=== PATIENT | female | born 1995 | race Caucasian/White ===

== ENCOUNTER 2024-08-25 22:06 | Emergency (ER) | payer OTHER, SELFPAY ==
--- NOTE | 2024-08-25 22:41 | DI.US.S_ITS ---
PROCEDURE: US OB <= 14 WEEKS FETUS INDICATIONS: 7 weeks with vag bleeding OUTSIDE/PRIOR DATING DATA: Last menstrual period (LMP): 07/05/2024. LMP-based estimated date of delivery (GOGO): 04/11/2025. First dating scan (date and location): 08/25/2024. Estimated date of delivery (GOGO) from first dating scan: 04/07/2025. TECHNIQUE: Real-time scanning was performed of the fetus and maternal pelvic organs, with image documentation. Endovaginal scanning was also performed to better visualize the fetus and maternal ovaries. COMPARISON: None. FINDINGS: Embryo: [place]-rump length measures 1.5 cm corresponding to 7 weeks 6 days perigestational hemorrhage is present measuring 1.3 cm. Heart rate: 165 Maternal organs: Ovaries probable left corpus luteal cyst.. IMPRESSION: Single live intrauterine with gestational age today 7 weeks 6 days. Perigestational hemorrhage. Recommend followup imaging at 20-22 weeks for dates and anatomy. We strive to produce accurate, complete, and clear reports of imaging services. To assist us in improving patient care, this report was composed using standard report templates and voice recognition software. Therefore, it may contain abnormal punctuation, insertions and/or omissions. Occasional wrong-word or sound-alike substitutions may occur. Though we review the report and make efforts to correct it, we do recommend that the report be read carefully in proper context to recognize any text inaccuracies. Dictated by: Jaz Devries M.D. on 08/26/2024 at 0:04 Approved by: Jaz Devries M.D. on 08/26/2024 at 0:05
[2024-08-25 22:43] VITALS: BP 120/73; PULSE 78; RESP 16; TEMP 37; O2SAT 100; BMI 21.6
[2024-08-26 00:18] LABS: Add Manual Diff / Slide Review NO; Basophils Absolute Auto 0 /uL (0-100); Basophils Percent Auto 0.7 % (0-2); Eosinophils Absolute Auto 200 /uL (0-450); Eosinophils Percent Auto 2.5 % (2-4); Hematocrit 35.3 % (36-46); Hemoglobin 11.7 g/dL (12.0-16.0); Lymphocytes Absolute Auto 1800 /uL (1100-4500); Lymphocytes Percent Auto 25.3 % (25-40); Mean Corpuscular HGB Conc 33.2 % (30-36); Mean Corpuscular Hemoglobin 28.2 PG (26-34); Monocytes Absolute Auto 500 /uL (0-900); Monocytes Percent Auto 6.9 % (3-14); Neutrophils Absolute Auto 4500 /uL (1500-7000); Neutrophils Percent Auto 64.6 % (50-75); Platelet Count 270 X10^3/uL (150-400); Red Blood Cell Count 4.15 X10^6/uL (4.0-5.2); Red Cell Distribution Width 14.9 % (11.6-14.8); White Blood Cell Count 6.9 X10^3/uL (4.5-11.0)
[2024-08-26 00:28] LABS: Blood Urea Nitrogen 8 mg/dL (7-17); Calcium 9.4 mg/dL (8.4-10.2); Carbon Dioxide 21 mmol/L (22-32); Chloride 104 mmol/L (98-107); Estimated Glomerular Filt Rate > 60 mL/min (>60); Glucose 93 mg/dL (70-100); HEMOLYSIS < 15 (0-50); Potassium 3.3 mmol/L (3.4-5.1); Sodium 133 mmol/L (137-145)
[2024-08-26 00:48] LABS: Appearance Urine UA CLEAR; Bilirubin Urine UA NEGATIVE (NEGATIVE); Color Urine UA YELLOW; Glucose Urine UA NEGATIVE (Negative); Ketones Urine UA NEGATIVE (NEGATIVE); Leukocyte Esterase Urine UA NEGATIVE (NEGATIVE); Nitrite Urine UA NEGATIVE (Negative); Occult Blood Urine UA 3+ (Negative); Protein Urine UA NEGATIVE (Negative); Specific Gravity Urine UA 1.025 (1.000-1.035)
[2024-08-26 00:53] LABS: Bacteria Urine Moderate (10-30); Culture Indicated Urine Cult Not Indicated; Mucus Urine 2+ (Negative); RBC Urine 0-1/HPF (0-5/HPF); Squamous Epithelial Cell Urine 5-10 /HPF (0-5/HPF); Urine Volume Low Vol <10mL (spun); WBC Urine 0-1/HPF (0-5/HPF)
[2024-08-26 01:10] LABS: HCG Quantitative /Beta subunit 147780 mIU/mL
--- NOTE | 2024-08-26 01:20 | ED_ITS ---
HPI - Female Genitourinary General Chief complaint: OB/Uterine Contractions Stated complaint: 7 weeks preg, cramping and bleeding Time Seen by Provider: 08/25/24 22:41 Source: patient Mode of arrival: Ambulatory History of Present Illness HPI Narrative: 28-year-old female without any significant past medical history comes into the ED from home for evaluation of vaginal bleeding. She states that she is currently approximately 7 weeks , this was an unplanned , [facility]. She presents due to the fact that she had some vaginal spotting bleeding mild cramping. She states that she does not have an OBGYN but does not intend to keep this . Patient denies any other symptoms at this time no trauma no falls. Related Data Previous Rx's Medication Instructions Recorded cephalexin 500 mg capsule 500 mg PO TID 7 days #21 caps 08/26/24 Review of Systems Review of Systems Narrative: General: Denies fever, chills, weight loss HEENT: Denies headache, eye drainage, eye irritation, head trauma, sore throat, voice change Cardiovascular: Denies any chest pain, palpitations, tachycardia Respiratory: Denies any shortness of breath, cough, wheeze, stridor GI/: Positive pelvic cramping and vaginal bleeding, patient is a proximally 7 weeks Denies any abdominal pain, nausea, vomiting, diarrhea, bright red blood per rectum, melanotic stools, urinary frequency, urinary retention, dysuria, hematuria MSK: Denies any joint pain, muscle pains, swelling Skin: Denies any rashes, lesions, discoloration Neuro: Denies any headache, lightheadedness, dizziness, fainting, weakness Psych: Denies SI/HI Exam Narrative Exam Narrative: General: Cooperative, well-developed, not in acute distress HEENT: Normocephalic, atraumatic, PERRLA, normal sclera, eyelids normal Neck: Active full range of motion, atraumatic Chest: Normal to inspection, negative crepitus, no overlying erythema ecchymosis Respiratory: Normal respiratory effort, not in acute respiratory distress, clear to auscultation bilaterally negative cough, wheeze, tachypnea, rhonchi, rales Cardiology: Regular rate rhythm negative gallop, murmur, rubs GI/: No tenderness to palpation, soft, non rigid, normal to inspection, exam deferred MSK: Full active range of motion in all 4 extremities, atraumatic, no tenderness to palpation of any bony prominences Skin: No rashes or lesions noted Neuro: Alert awake oriented x3, moves all 4 extremities spontaneously, cranial nerves intact, able to answer all questions appropriately follows commands appropriately Psych: Cooperative, negative suicidal or homicidal ideations Initial Vital Signs Initial Vital Signs: Vital Signs Temperature 98.6 F 08/25/24 22:43 Pulse Rate 78 08/25/24 22:43 Respiratory Rate 16 08/25/24 22:43 Blood Pressure 120/73 08/25/24 22:43 Pulse Oximetry 100 08/25/24 22:43 Oxygen Delivery Method Room Air 08/25/24 22:43 Course Orders Ordered: ED Orders 08/25/24 22:41 OB <= 14 weeks fetus Stat ABO RH Type Stat HCG Quantitative /Beta subunit Stat 08/25/24 22:42 BMP [Basic Metabolic Panel] Stat CBC Auto Diff [Complete Blood Count AUTO DIFF] Stat 08/26/24 00:27 Urinalysis and Microscopic Stat Vital Signs Vital signs: Vital Signs - 8 hr 08/25/24 22:43 Temperature 98.6 F Pulse Rate 78 Respiratory Rate 16 Blood Pressure 120/73 Pulse Oximetry 100 Oxygen Delivery Method Room Air MDM - Female Genitourinary Differential Diagnosis Differential diagnosis: Likely urinary tract infection and other (Asymptomatic bacteriuria, threatened ) Lab Data 08/26/24 00:04 08/26/24 00:04 Labs: Lab Results 08/26/24 08/26/24 Range/Units 00:04 00:27 WBC 6.9 (4.5-11.0) X10^3/uL RBC 4.15 (4.0-5.2) X10^6/uL Hgb 11.7 L (12.0-16.0) g/dL Hct 35.3 L (36-46) % MCV 85.0 (80-100) fL MCH 28.2 (26-34) PG MCHC 33.2 (30-36) % RDW 14.9 H (11.6-14.8) % Plt Count 270 (150-400) X10^3/uL Neut % (Auto) 64.6 (50-75) % Lymph % (Auto) 25.3 (25-40) % [place] % (Auto) 6.9 (3-14) % Eos % (Auto) 2.5 (2-4) % Baso % (Auto) 0.7 (0-2) % Neut # (Auto) 4500 (5671-4190) /uL Lymph # (Auto) 1800 (7203-6778) /uL [place] # (Auto) 500 (0-900) /uL Eos # (Auto) 200 (0-450) /uL Baso # (Auto) 0 (0-100) /uL Sodium 133 L (137-145) mmol/L Potassium 3.3 L (3.4-5.1) mmol/L Chloride 104 (98-107) mmol/L Carbon Dioxide 21 L (22-32) mmol/L BUN 8 (7-17) mg/dL Creatinine 0.73 (0.52-1.04) mg/dL Estimated GFR > 60 (>60) mL/min BUN/Creatinine Ratio 11.0 (6-22) Glucose 93 (70-100) mg/dL Calcium 9.4 (8.4-10.2) mg/dL HCG, Quant 668775 mIU/mL Urine Color Yellow Urine Appearance Clear Urine pH 6.0 (4.5-8.0) Ur Specific [place] 1.025 (1.000-1.035) Urine Protein Negative (Negative) Urine Glucose (UA) Negative (Negative) g/dL Urine Ketones Negative (NEGATIVE) Urine Occult Blood 3+ H (Negative) Urine Nitrate Negative (Negative) Urine Bilirubin Negative (NEGATIVE) Urine Urobilinogen 1.0 (0.2) E.U./dL Ur Leukocyte Esterase Negative (NEGATIVE) Urine RBC 0-1/hpf (0-5/HPF) Urine WBC 0-1/hpf (0-5/HPF) Ur Squamous Epith Cells 5-10 /hpf H (0-5/HPF) Urine Bacteria Moderate (10-30) H (None) Urine Mucus 2+ H (Negative) Ur Culture Indicated? Cult not indicated Vol Urine Centrifuged Low vol <10ml (spun) A Blood Type A Positive Imaging Data US - OB: Radiologist's Impression: [address] [address] Ultrasound Report Signed Patient: Danitza Rayo MR#: [id number] : 1995 Acct:[id number] Age/Sex: 28 / F Date of Service: 08/25/24 Loc: ED Accession Number: [id number] Procedure: US OB <= 14 weeks fetus Ordering Provider: Mitchell Hendrickson D.O. PROCEDURE: US OB <= 14 WEEKS FETUS INDICATIONS: 7 weeks with vag bleeding OUTSIDE/PRIOR DATING DATA: Last menstrual period (LMP): 07/05/2024. LMP-based estimated date of delivery (GOGO): 04/11/2025. First dating scan (date and location): 08/25/2024. Estimated date of delivery (GOGO) from first dating scan: 04/07/2025. TECHNIQUE: Real-time scanning was performed of the fetus and maternal pelvic organs, with image documentation. Endovaginal scanning was also performed to better visualize the fetus and maternal ovaries. COMPARISON: None. FINDINGS: Embryo: [place]-rump length measures 1.5 cm corresponding to 7 weeks 6 days perigestational hemorrhage is present measuring 1.3 cm. Heart rate: 165 Maternal organs: Ovaries probable left corpus luteal cyst.. IMPRESSION: Single live intrauterine with gestational age today 7 weeks 6 days. Perigestational hemorrhage. Recommend followup imaging at 20-22 weeks for dates and anatomy. We strive to produce accurate, complete, and clear reports of imaging services. To assist us in improving patient care, this report was composed using standard report templates and voice recognition software. Therefore, it may contain abnormal punctuation, insertions and/or omissions. Occasional wrong-word or sound-alike substitutions may occur. Though we review the report and make efforts to correct it, we do recommend that the report be read carefully in proper context to recognize any text inaccuracies. MDM Narrative Medical decision making narrative: 28-year-old female currently 7 weeks unplanned presents to the emergency department for vaginal cramping bleeding, believes she might be having an /miscarriage. No trauma no falls not on any blood thinners. She does not have an OBGYN states that she [facility] She does not intend to keep this . She denies any other symptoms at this time. Ultrasound showing a single live intrauterine with perigestational hemorrhage otherwise no other acute findings on ultrasound, patient patient is A positive therefore does not require RhoGAM at this time. Patient will be treated for an acute urinary tract infection/asymptomatic bacteriuria, 1st dose of antibiotics here sent home with a prescription she was instructed [facility] along with her primary care doctor, she verbalized understanding of this and agrees to being discharged home with outpatient follow up Discharge Plan Departure Patient Disposition: Home Clinical Impression: , threatened, Urinary tract infection Instructions: DI for Urinary Tract Infection (UTI) Activity Restrictions/Additional Instructions: [facility] and your primary care in outpatient setting Please read the discharge instructions sheet carefully and bring all papers to all doctor follow-up visits, as it may contain information that your doctor may want to see. Disease processes change and evolve, if your symptoms worsen or if you develop any new symptoms that are concerning to you please return for evaluation. Your evaluation today does not show any evidence of any life- threatening/serious illnesses requiring admission to the hospital or surgery. Please follow-up with your doctor for re-evaluation in approximately 1 day. Seek immediate medical attention for any worrisome symptoms. *If you do not have a primary care provider please contact the [facility] Resource line at [phone]. They will ask some questions about your medical history and help get you set up with a doctor in the community. Prescriptions: New cephalexin 500 mg capsule 500 mg PO TID 7 Days Qty: 21 0RF Stand Alone Forms: Patient Portal/API/Survey
[2024-08-26] MEDS: cephALEXin 250 MG CAPSULE 500 MG PO (01:37)
[2024-08-26 01:46] VITALS: BP 118/74; PULSE 76; RESP 16; O2SAT 100
== END 2024-08-26 01:47 | disposition home or self-care (01) ==
PROVIDERS: Emergency Provider Student in an Organized Health Care Education/Training Program
DX: O20.0 Threatened abortion (principal); O23.41 Unspecified infection of urinary tract in pregnancy, first trimester; N39.0 Urinary tract infection, site not specified; Z3A.01 Less than 8 weeks gestation of pregnancy
CPT/HCPCS: 76801; 76817; 80048; 81001; 84702; 85025; 86900; 86901; 99283; 99284